=== PATIENT | male | born 1990 | race Caucasian/White ===

== ENCOUNTER 2019-07-26 11:53 | Emergency (ER) | payer MEDICAID ==
[~2019-07-26] VITALS: Ht 172.7 cm; Wt 84.4 kg
[2019-07-26 12:11] VITALS: BP 127/56
--- NOTE | 2019-07-26 12:15 | NUR ---
ASSISTED PT TO WAIT IN THE LOBBY.
[2019-07-26] MEDS ORDERED: KETOROLAC 60 MG/2 ML VIAL IM ONE (13:20)
--- NOTE | 2019-07-26 13:24 | NUR ---
29/M C/O SEVERE 02/17 RT LOWER TOOTHACHE THAT RADIATES TO RT EAR AND RT SIDE OF HEAD X 2 WEEKS. PT YASMINE HAS FEVER, N/V/D. TOOK IBUPROFEN WITHOUT RELIEF. PMH: YASMINE MEDS: YASMINE Addendum: 07/26/19 at 1333 by RUTHANN PAIN WORSENED BY EATING. PT HAS NOT SEEN DENTIST YET REGARDING THIS PROBLEM.
--- NOTE | 2019-07-26 13:42 | NUR ---
Patient discharged with v/s stable. Written and verbal after care instructions given and explained. Patient alert, oriented and verbalized understanding of instructions. Ambulatory with steady gait. All questions addressed prior to discharge. ID band removed. Patient advised to follow up with PMD. Rx of NORCO, IBUPROFEN, AND AMOXICILLIN given. Patient educated on indication of medication including possible reaction and side effects. Opportunity to ask questions provided and answered.
[2019-07-26 13:43] VITALS: BP 127/56
== END 2019-07-26 13:42 | disposition home or self-care (01) ==
LOC: MED 11:53
DX: K08.89 Other specified disorders of teeth and supporting structures (principal)
CPT/HCPCS: 96372; 99283; J1885

== ENCOUNTER 2021-03-20 10:21 | Emergency (ER) | payer SELFPAY ==
[~2021-03-20] VITALS: Ht 172.7 cm; Wt 86.2 kg
[2021-03-20 10:37] VITALS: BP 121/63
--- NOTE | 2021-03-20 10:40 | NUR ---
Fred galindo in [facility] - 03/20/21 at 1359 by IZABELR ELADIO REPORTS PT EL
--- NOTE | 2021-03-20 10:50 | NUR ---
C/O 10/18 RIGHT KNEE & R ANKLE PAIN S/P FALL X 4 DAYS. PMH: DENIES.
--- NOTE | 2021-03-20 11:00 | NUR ---
XRAY REPORTS PT LEFT WITHOUT BEING SEEN AT THIS TIME.
== END 2021-03-20 11:00 | disposition left against medical advice (07) ==
LOC: MED 10:21
DX: M25.561 Pain in right knee (principal); M25.571 Pain in right ankle and joints of right foot; Z53.21 Procedure and treatment not carried out due to patient leaving prior to being seen by health care provider; W19.XXXA Unspecified fall, initial encounter; Y93.89 Activity, other specified; Y92.89 Other specified places as the place of occurrence of the external cause; Y99.8 Other external cause status